=== PATIENT | male | born 2000 | race Two or more races ===

== ENCOUNTER 2021-02-17 08:40 | Emergency (ER) | payer OTHER, MEDICAID ==
[~2021-02-17] VITALS: Ht 182.9 cm; Wt 81.6 kg
[2021-02-17 08:40] VITALS: BP 148/93
[2021-02-17] MEDS ORDERED: IPRATROPIUM BROM 0.5 MG/2.5ML INH SOL NEB ONE (09:30)
[2021-02-17] MEDS ORDERED: ALBUTEROL SULF 2.5 MG/0.5ML(0.5%) NEB SOLN NEB ONE (09:30)
== END 2021-02-17 10:36 | disposition home or self-care (01) ==
LOC: ER 08:40
DX: J45.901 Unspecified asthma with (acute) exacerbation (principal)
CPT/HCPCS: 71046; 94640; 99283; J7644